=== PATIENT | female | born 1930 | race Caucasian/White ===

== ENCOUNTER 2018-06-30 20:56 | Inpatient (IN) | payer MEDICARE, OTHER ==
[~2018-06-30] VITALS: Ht 175.3 cm; Wt 60.5 kg
[~2018-06-30 20:56] MED LIST: ASPIRIN 81M81 MG/TA2 PO; BUMEX 1MG TA1 MG/TA1 PO; CALCIUM1 CAP PO; CORDARONE200 MG/TAB PO; COREG 6.256.25 MG/TA PO; COUMADIN 22.5 MG/TAB PO; COZAAR 50MG50 MG/TAB PO; FOSAMAX 70MG TA70 MG PO; LANOXIN 0.120.125 MG PO; NEURONTIN100 MG/CAP PO; OMEGA-3 FISH1200 MG PO; PRILOSEC 20MG20 MG PO; SYNTHROID0.125 MG/T PO; VITAMIN C PUR1000 MG PO
[2018-06-30] MEDS ORDERED: COREG 25MG25 MG/TAB PO (23:00)
[2018-06-30] MEDS ORDERED: HYZAAR 50-12.1 UDTAB PO (23:01)
[2018-06-30] MEDS ORDERED: PREDNISONE10 MG PO (23:02)
[2018-06-30] MEDS ORDERED: CRANBERRY450 MG PO (23:02)
[2018-06-30] MEDS ORDERED: DIGESTIVE PROB1 EACH PO (23:03)
[2018-06-30] MEDS ORDERED: SERAX 10MG10 MG/CAP PO (23:04)
[2018-06-30 23:37] LABS: HYALINE CAST >12 /lpf; PH 6 (5-8); SQUAMOUS EPITHELIAL 0-2 /hpf; URINE APPEARANCE Clear; URINE BACTERIA None Seen /hpf; URINE BILIRUBIN Negative (NEGATIVE); URINE BLOOD 2+ (NEGATIVE); URINE COLOR Yellow; URINE GLUCOSE Negative (NEGATIVE); URINE KETONE Negative (NEGATIVE); URINE LEUKOCYTE ESTERASE Trace (NEGATIVE); URINE NITRATE Negative (NEGATIVE); URINE PROTEIN(semi-quant) Negative (NEGATIVE); URINE UROBILINOGEN Negative (NEGATIVE)
[2018-06-30 23:45] VITALS: BP 140/62; PULSE 73; TEMP 98.2
[2018-07-01] VITALS (12 sets, daily range): BP systolic 95–139; BP diastolic 39–74; PULSE 70–83; TEMP 97.4–100.1
[2018-07-01 01:46] LABS: BASO % 0.2 % (0.0-2.0); EOS % 0.4 % (0-4.0); GRAN % 78.5 % (42.2-75.2); HEMATOCRIT 36.4 % (37.0-47.0); HEMOGLOBIN 11.7 g/dl (12.5-16.0); LYMPH # 1.1 (1.2-3.4); LYMPH % 10.9 % (20.0-51.0); MEAN CELL VOLUME 96 fl (80.0-100.0); MEAN CORPUSCULAR HEMOGLOBIN 31 pg (27.0-31.0); MEAN CORPUSCULAR HGB CONC 32 g/dl (33.0-37.0); MEAN PLATELET VOLUME 9.3 fl (7.4-10.4); MONO % 9.4 % (1.7-9.3); PLATELET COUNT 179 K/mm3 (130-400); RED BLOOD COUNT 3.79 M/mm3 (4.10-5.30); REDCELL DISTRIBUTION WIDTH-CV 13.7 % (11.5-14.5)
[2018-07-01 02:00] LABS: PROTHROMBIN TIME 11.9 SECONDS (9.7-12.8)
[2018-07-01 02:07] LABS: ALBUMIN 3.3 gm/dL (3.5-5.0); BILIRUBIN,TOTAL 0.7 mg/dL (0.0-1.0); CALCIUM 8.7 mg/dL (8.4-10.2); CREATININE, serum 0.81 mg/dL (0.52-1.25); POTASSIUM 3.6 mmol/L (3.4-5.0); TOTAL PROTEIN 6.6 gm/dL (6.4-8.2)
[2018-07-01 02:14] LABS: PRE ALBUMIN 14.9 mg/dL (17.6-36.0)
[2018-07-01 06:12] LABS: COLLECTION METHOD CLEAN CATCH
[2018-07-02] VITALS (8 sets, daily range): BP systolic 90–106; BP diastolic 44–62; PULSE 70–81; TEMP 97.4–97.8
[2018-07-02 06:27] LABS: HEMATOCRIT 38.7 % (37.0-47.0); HEMOGLOBIN 12.1 g/dl (12.5-16.0); MEAN CELL VOLUME 98 fl (80.0-100.0); MEAN CORPUSCULAR HEMOGLOBIN 31 pg (27.0-31.0); MEAN CORPUSCULAR HGB CONC 31 g/dl (33.0-37.0); MEAN PLATELET VOLUME 9.6 fl (7.4-10.4); PLATELET COUNT 152 K/mm3 (130-400); RED BLOOD COUNT 3.97 M/mm3 (4.10-5.30); REDCELL DISTRIBUTION WIDTH-CV 13.7 % (11.5-14.5)
[2018-07-02 06:46] LABS: CALCIUM 8.5 mg/dL (8.4-10.2); CREATININE, serum 0.77 mg/dL (0.52-1.25)
[2018-07-02 07:01] LABS: BAND 31 % (0-10); HYPOCHROMIA 1+; LYMPHOCYTE 2 % (20.0-51.0); NEUTROPHILS 61 % (42.0-75.2); PLATELET ESTIMATE NORMAL (NORMAL)
[2018-07-02] MEDS ORDERED: NEURONTIN300 MG/CAP (20:51)
[2018-07-03 01:26] VITALS: BP 121/59; PULSE 77; TEMP 97.4
[2018-07-03 04:59] VITALS: BP 116/52; PULSE 76; TEMP 97.6
[2018-07-03 08:00] VITALS: BP 103/56; PULSE 81; TEMP 97.7
[2018-07-03 11:59] VITALS: BP 92/46; PULSE 75; TEMP 97.5
[2018-07-03 16:15] VITALS: BP 114/61; PULSE 89; TEMP 98
[2018-07-03 20:19] VITALS: BP 111/50; PULSE 74; TEMP 97.5
[2018-07-04 00:45] VITALS: BP 106/77; PULSE 82; TEMP 97
[2018-07-04 03:07] VITALS: BP 118/56; PULSE 76; TEMP 97.2
[2018-07-04 06:19] LABS: HEMOGLOBIN 10.9 g/dl (12.5-16.0); MEAN CELL VOLUME 95 fl (80.0-100.0); MEAN CORPUSCULAR HEMOGLOBIN 31 pg (27.0-31.0); MEAN CORPUSCULAR HGB CONC 32 g/dl (33.0-37.0); MEAN PLATELET VOLUME 10.4 fl (7.4-10.4); PLATELET COUNT 181 K/mm3 (130-400); RED BLOOD COUNT 3.55 M/mm3 (4.10-5.30); REDCELL DISTRIBUTION WIDTH-CV 14.1 % (11.5-14.5)
[2018-07-04 06:20] LABS: HEMATOCRIT 33.8 % (37.0-47.0)
[2018-07-04 06:42] LABS: CALCIUM 8.4 mg/dL (8.4-10.2); CREATININE, serum 0.92 mg/dL (0.52-1.25); POTASSIUM 4.3 mmol/L (3.4-5.0)
[2018-07-04 06:52] LABS: BAND 22 % (0-10); BASOPHIL 1 % (0-2); LYMPHOCYTE 9 % (20.0-51.0); NEUTROPHILS 61 % (42.0-75.2); PLATELET ESTIMATE NORMAL (NORMAL)
[2018-07-04 07:36] VITALS: BP 92/48; PULSE 76; TEMP 97.8
[2018-07-04 11:33] VITALS: BP 98/51; PULSE 77; TEMP 97.3
[2018-07-04 15:26] LABS: MUCOUS Present /lpf; PH 5 (5-8); SQUAMOUS EPITHELIAL 0-2 /hpf; URINE APPEARANCE Clear; URINE BACTERIA None Seen /hpf; URINE BILIRUBIN Negative (NEGATIVE); URINE BLOOD Negative (NEGATIVE); URINE COLOR Yellow; URINE GLUCOSE Negative (NEGATIVE); URINE KETONE Negative (NEGATIVE); URINE LEUKOCYTE ESTERASE 1+ (NEGATIVE); URINE NITRATE Negative (NEGATIVE); URINE PROTEIN(semi-quant) Negative (NEGATIVE); URINE RBC 0-2 /hpf; URINE UROBILINOGEN Negative (NEGATIVE)
[2018-07-04 15:35] LABS: COLLECTION METHOD CLEAN CATCH
[2018-07-04 15:50] VITALS: BP 115/50; PULSE 70; TEMP 97.6
[2018-07-04 19:59] VITALS: BP 120/43; PULSE 70; TEMP 97.3
[2018-07-05 03:40] VITALS: BP 149/71; PULSE 70; TEMP 97.9
[2018-07-05 07:17] LABS: BASO % 0.2 % (0.0-2.0); EOS # 0.1 (0.0-0.7); EOS % 0.8 % (0-4.0); GRAN # 11.8 (1.4-6.5); GRAN % 82.9 % (42.2-75.2); HEMOGLOBIN 11.5 g/dl (12.5-16.0); LYMPH # 1.1 (1.2-3.4); LYMPH % 7.4 % (20.0-51.0); MEAN CELL VOLUME 97 fl (80.0-100.0); MEAN CORPUSCULAR HEMOGLOBIN 31 pg (27.0-31.0); MEAN CORPUSCULAR HGB CONC 31 g/dl (33.0-37.0); MONO # 1.1 (0.1-0.6); MONO % 7.6 % (1.7-9.3); PLATELET COUNT 191 K/mm3 (130-400); RED BLOOD COUNT 3.76 M/mm3 (4.10-5.30); REDCELL DISTRIBUTION WIDTH-CV 14.1 % (11.5-14.5)
[2018-07-05 07:20] LABS: HEMATOCRIT 36.6 % (37.0-47.0)
[2018-07-05 07:27] LABS: CALCIUM 8.3 mg/dL (8.4-10.2); CREATININE, serum 0.8 mg/dL (0.52-1.25); POTASSIUM 3.9 mmol/L (3.4-5.0)
[2018-07-05 07:43] VITALS: BP 137/55; PULSE 77; TEMP 97.3
[2018-07-05 11:18] VITALS: BP 111/40; PULSE 62; TEMP 97.9
[2018-07-05 15:11] VITALS: BP 93/32; PULSE 71; TEMP 97.5
[2018-07-05 20:01] VITALS: BP 123/52; PULSE 74; TEMP 98.2
[2018-07-05 23:19] VITALS: BP 128/65; PULSE 78; TEMP 98.2
[2018-07-06 03:42] VITALS: BP 143/61; PULSE 73; TEMP 97.5
[2018-07-06] MEDS ORDERED: ASPI325T6 PO (07:47)
[2018-07-06] MEDS ORDERED: NEURONTIN300 MG/CAP PO (07:48)
[2018-07-06] MEDS ORDERED: OSCAL 500 TAB500 MG PO (07:48)
[2018-07-06] MEDS ORDERED: DUO-KAPS1 CAP PO (07:49)
[2018-07-06] MEDS ORDERED: VITAMIN C500 MG PO (07:49)
[2018-07-06 08:35] VITALS: BP 146/63; PULSE 81; TEMP 99.1
[2018-07-06 08:42] LABS: HEMOGLOBIN 11.3 g/dl (12.5-16.0); MEAN CELL VOLUME 96 fl (80.0-100.0); MEAN CORPUSCULAR HEMOGLOBIN 31 pg (27.0-31.0); MEAN CORPUSCULAR HGB CONC 32 g/dl (33.0-37.0); MEAN PLATELET VOLUME 9.9 fl (7.4-10.4); PLATELET COUNT 201 K/mm3 (130-400); RED BLOOD COUNT 3.68 M/mm3 (4.10-5.30); REDCELL DISTRIBUTION WIDTH-CV 14.1 % (11.5-14.5)
[2018-07-06] MEDS ORDERED: MAXIPIME1 GM IV (09:33)
[2018-07-06] MEDS ORDERED: COZAAR 50MG50 MG/TAB PO (09:34)
[2018-07-06 09:36] LABS: HEMATOCRIT 35.4 % (37.0-47.0)
[2018-07-06 09:38] LABS: BAND 18 % (0-10); EOSINOPHIL 1 % (0-4); LYMPHOCYTE 9 % (20.0-51.0); NEUTROPHILS 65 % (42.0-75.2)
[2018-07-06 09:39] LABS: PLATELET ESTIMATE NORMAL (NORMAL)
[2018-07-06 09:58] LABS: CALCIUM 8.1 mg/dL (8.4-10.2); CREATININE, serum 0.71 mg/dL (0.52-1.25); POTASSIUM 3.9 mmol/L (3.4-5.0)
[2018-07-06] MEDS ORDERED: DIAMOX 250MG250 MG PO (10:57)
[2018-07-06] MEDS ORDERED: NORCO 325 MG-51 TAB PO (11:09)
[2018-07-06] MEDS ORDERED: MEDROL 4MG DOSPA4 MG PO (11:11)
[2018-07-06 12:25] VITALS: BP 146/63; PULSE 81; TEMP 99.1
== END 2018-07-06 12:49 | disposition swing bed (61) | DRG 469 ==
LOC: SURG 20:56
PROVIDERS: Internal Medicine; Nurse Practitioner Family; Orthopaedic Surgery Sports Medicine; Physician Assistant
PROC: 0SRR0J9 Replacement of Right Hip Joint, Femoral Surface with Synthetic Substitute, Cemented, Open Approach (ICD-10-PCS; principal; 2018-07-01 18:00)
DX: M80.051A Age-related osteoporosis with current pathological fracture, right femur, initial encounter for fracture (principal); J18.9 Pneumonia, unspecified organism; B02.29 Other postherpetic nervous system involvement; I42.0 Dilated cardiomyopathy; I50.22 Chronic systolic (congestive) heart failure; E87.3 Alkalosis; I11.0 Hypertensive heart disease with heart failure; I48.0 Paroxysmal atrial fibrillation; Z95.810 Presence of automatic (implantable) cardiac defibrillator; M31.6 Other giant cell arteritis; W01.0XXA Fall on same level from slipping, tripping and stumbling without subsequent striking against object, initial encounter; G62.9 Polyneuropathy, unspecified; D50.9 Iron deficiency anemia, unspecified; I27.20 Pulmonary hypertension, unspecified
CPT/HCPCS: 99222-AI; 99231-AI; 99232-AI; 99233-AI; 99239; A4216; A4314; A9284; C1776; J0456; J0690; J0692; J1100; J1720; J2250; J2270; J2405; J2704; J3010; J3370; J7050; J7120; J7121; J7512

== ENCOUNTER → 2020-01-31 | Outpatient (CLI) | payer MEDICARE, OTHER ==
[~2020-01-31] MED LIST changes: +ASPI325T6 PO; +COREG 25MG25 MG/TAB PO; +CRANBERRY450 MG PO; +DIAMOX 250MG250 MG PO; +DIGESTIVE PROB1 EACH PO; +DUO-KAPS1 CAP PO; +HYZAAR 50-12.1 UDTAB PO; +MAXIPIME1 GM IV; +MEDROL 4MG DOSPA4 MG PO; +NEURONTIN300 MG/CAP; +NEURONTIN300 MG/CAP PO; +NORCO 325 MG-51 TAB PO; +OSCAL 500 TAB500 MG PO; +PREDNISONE10 MG PO; +SERAX 10MG10 MG/CAP PO; +VITAMIN C500 MG PO
== END ==
LOC: ZCOL.LAB 18:34
DX: L98.499 Non-pressure chronic ulcer of skin of other sites with unspecified severity (principal)

== ENCOUNTER → 2020-01-31 | Outpatient (CLI) | payer MEDICARE, OTHER | LOC: ZCOL.LAB 17:50 | DX: L98.499 Non-pressure chronic ulcer of skin of other sites with unspecified severity (principal) ==

== ENCOUNTER 2020-02-12 15:45 | Inpatient (IN) | payer MEDICARE, OTHER ==
[~2020-02-12] VITALS: Ht 175.3 cm; Wt 61.6 kg
[2020-02-25 07:50] VITALS: BP 139/64; PULSE 72; TEMP 98
--- NOTE | 2020-02-25 08:02 | NUR ---
TO RM AT 0723- CALL LIGHT IN REACH ALERT ORIENTED X3, VERBALIZED UNDERSTANDING AND SIGNED CONSENT.
[2020-02-25] MEDS ORDERED: COZAAR 50MG50 MG/TAB PO (08:04)
[2020-02-25] MEDS ORDERED: PREDNISONE10 MG PO (08:04)
[2020-02-25] MEDS ORDERED: SYNTHROID0.1 MG/TAB PO (08:06)
[2020-02-25] MEDS ORDERED: XARELTO15 MG PO (08:07)
[2020-02-25] MEDS ORDERED: NEURONTIN300 MG/CAP PO (08:07)
[2020-02-25] MEDS ORDERED: SERAX 10MG10 MG/CAP PO (08:08)
[2020-02-25] MEDS ORDERED: CALCIUM 600MG+D1 TAB PO (08:08)
--- NOTE | 2020-02-25 08:11 | NUR ---
TO MARLENY AT 0723- CALL LIGHT IN REACH
--- NOTE | 2020-02-25 10:30 | NUR ---
AMBULATED TO BATHROOM WITH ASSIST. PATIENT SITTING UP IN BED WORKING ON OWN TABLET.
--- NOTE | 2020-02-25 13:39 | NUR ---
Dr Bess called and stated he would rescheduled. He wanted to talk with patient before sending patient home.
--- NOTE | 2020-02-25 14:45 | NUR ---
DR CAREY CANCELLED PROCEDURE SON WAS CALLED FOR RIDE TO [employer] PATIENT. DISCONTINUED IV AND INT- CATHETER INTACT. SON VERBALIZED HIM BEING EXTREMELY UPSET AND WANTED TO TALK TO [employer]. CALLED [employer] AND PLANS ON TALKING WITH PATIENTS SON UPON ARRIVAL TO [employer] PATIENT.
--- NOTE | 2020-02-25 16:00 | NUR ---
Patient was dismissed to home driven by son and taken to the front door per wheelchair by James HOWE and assisted into vehicle.
== END 2020-02-25 16:00 | disposition home or self-care (01) | DRG 605 ==
LOC: INPTSU 02-25 07:07 → SURG 02-25 09:00 → INPTSU 02-25 16:00
PROVIDERS: ADMIT Surgery
DX: S81.801A Unspecified open wound, right lower leg, initial encounter (principal); F32.9 Major depressive disorder, single episode, unspecified; E11.9 Type 2 diabetes mellitus without complications; G89.29 Other chronic pain; I25.10 Atherosclerotic heart disease of native coronary artery without angina pectoris; D50.9 Iron deficiency anemia, unspecified; Z79.1 Long term (current) use of non-steroidal anti-inflammatories (NSAID); Z79.01 Long term (current) use of anticoagulants; Z95.810 Presence of automatic (implantable) cardiac defibrillator; I48.0 Paroxysmal atrial fibrillation; Z88.1 Allergy status to other antibiotic agents
CPT/HCPCS: OP; J0690; J1100; J1720; J2405; J2704; J3010; J7120

== ENCOUNTER 2021-01-01 10:23 | Day surgery (SDC) | payer MEDICARE, OTHER ==
[~2021-01-01] VITALS: Ht 175.3 cm; Wt 59.4 kg
[~2021-01-01 10:23] MED LIST changes: +CALCIUM 600MG+D1 TAB PO; +CRANBERRY FRUI425 MG PO; -CRANBERRY450 MG PO; +SYNTHROID0.1 MG/TAB PO; +XARELTO15 MG PO
[2021-01-01 11:33] LABS: BASO # 0.1 (0.0-0.2); BASO % 0.4 % (0.0-2.0); EOS % 0.2 % (0-4.0); GRAN # 12.1 (1.4-6.5); GRAN % 86.1 % (42.2-75.2); HEMATOCRIT 41.4 % (37.0-47.0); HEMOGLOBIN 12.7 g/dl (12.5-16.0); LYMPH % 7.3 % (20.0-51.0); MEAN CELL VOLUME 100 fl (80.0-100.0); MEAN CORPUSCULAR HEMOGLOBIN 31 pg (27.0-31.0); MEAN CORPUSCULAR HGB CONC 31 g/dl (33.0-37.0); MEAN PLATELET VOLUME 9.2 fl (7.4-10.4); MONO # 0.7 (0.1-0.6); MONO % 5.1 % (1.7-9.3); PLATELET COUNT 271 K/mm3 (130-400); RED BLOOD COUNT 4.16 M/mm3 (4.10-5.30); REDCELL DISTRIBUTION WIDTH-CV 16.1 % (11.5-14.5)
[2021-01-01 11:41] LABS: CREATININE, serum 1.09 (0.52-1.25); POTASSIUM 4.5 mmol/L (3.4-5.0)
[2021-01-01 11:43] LABS: INR 1.1 (0.8-3.0); PROTHROMBIN TIME 12.2 SECONDS (9.7-12.8)
[2021-01-01 12:14] VITALS: BP 165/69; PULSE 73; TEMP 97.8
[2021-01-01] MEDS ORDERED: SERAX 10MG10 MG/CAP PO (12:44)
[2021-01-01] MEDS ORDERED: PREDNISONE1 MG PO (12:44)
[2021-01-01] MEDS ORDERED: COUMADIN 1MG1 MG/TAB PO (12:46)
[2021-01-01] MEDS ORDERED: COUMADIN 2MG2 MG/TAB PO (12:47)
[2021-01-01 13:59] VITALS: BP 173/71; PULSE 72
--- NOTE | 2021-01-01 13:59 | NUR ---
Patient returns to room 8 per cart from surgery accompanied by Tyrone CONRAD and Keanu HOWE. Patient is alert and oriented x3. Right port a catheter site is free of redness or swelling. Temp 97.5 and room air sats 100%. Siderails up x2 and call light in reach. Given sips of water to drink.
[2021-01-01 14:14] VITALS: BP 170/78; PULSE 76
[2021-01-01] MEDS ORDERED: NORCO 325 MG-51 TAB PO (14:14)
--- NOTE | 2021-01-01 14:14 | NUR ---
Assisted up to the bathroom and gait is steady. Voids and returns to room. Sitting on edge of the cart and is eating muffing and ice cream. Room air sats 96%.
--- NOTE | 2021-01-01 14:25 | NUR ---
Patient has dressed self. Right port a catheter site is soft and no swelling noted.
--- NOTE | 2021-01-01 14:45 | NUR ---
Dismissal instructions given and voices understanding of these. 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
--- NOTE | 2021-01-01 14:49 | NUR ---
Patient dismissed to home driven by son and accompanied by daughter. Taken to the front door by wheelchair and assisted into vehicle with dismissal instructions in hand.
== END 2021-01-01 14:49 | disposition home or self-care (01) ==
LOC: SDCO 10:23
PROVIDERS: Surgery
DX: Z45.2 Encounter for adjustment and management of vascular access device (principal); C55 Malignant neoplasm of uterus, part unspecified; E11.9 Type 2 diabetes mellitus without complications; I48.0 Paroxysmal atrial fibrillation; Z79.899 Other long term (current) drug therapy; G89.29 Other chronic pain; Z79.01 Long term (current) use of anticoagulants; E89.0 Postprocedural hypothyroidism; F32.9 Major depressive disorder, single episode, unspecified; F41.9 Anxiety disorder, unspecified; Z85.828 Personal history of other malignant neoplasm of skin; Z95.810 Presence of automatic (implantable) cardiac defibrillator; Z79.890 Hormone replacement therapy
CPT/HCPCS: C1788; J1644; J2704; J7120